=== PATIENT | male | born 1995 ===

== ENCOUNTER 2021-10-24 01:38 | Emergency (ER) | payer MEDICAID ==
[2021-10-24 02:09] LABS: BLOOD UREA NITROGEN,BUN 14 mg/dL (7.0-18.0); CARBON DIOXIDE,CO2 26.7 mmol/L (21.0-32.0); CHLORIDE,CL 100 mmol/L (98-107); GLUCOSE RANDOM 115 mg/dL (74-106); POTASSIUM,K 3.4 mmol/L (3.5-5.1); SODIUM,NA 141 mmol/L (136-148)
[2021-10-24] MEDS ORDERED: Potassium Chloride 10% 20 MEQ/15 ML Soln 30 ML UD Cup PO ONE (02:13)
[2021-10-24] MEDS ORDERED: Iopamidol 755 MG/ML 500 ML Multipack Bottle IVPUSH ONE (02:52)
== END 2021-10-24 03:54 | disposition home or self-care (01) ==
LOC: MW.ED 01:38
DX: R06.02 Shortness of breath (principal); R00.2 Palpitations; R00.0 Tachycardia, unspecified; E66.9 Obesity, unspecified; Z68.42 Body mass index [BMI] 45.0-49.9, adult
CPT/HCPCS: 36415; 71045; 71275; 80048; 83735; 84484; 85025; 85379; 93005; 99285; A9270; Q9967; 93010

== ENCOUNTER 2021-11-06 23:00 | Emergency (ER) | payer MEDICAID | END 2021-11-07 01:25 | disposition home or self-care (01) | LOC: MW.ED 23:00 | DX: R06.02 Shortness of breath (principal); R00.2 Palpitations; I10 Essential (primary) hypertension; E66.9 Obesity, unspecified; Z68.42 Body mass index [BMI] 45.0-49.9, adult | CPT/HCPCS: 71045; 71045-26; 93005; 93010; 99283; 99285-25 ==

== ENCOUNTER 2022-06-24 23:35 | Emergency (ER) | payer MEDICAID ==
[2022-06-25] MEDS ORDERED: Ketorolac 30 MG/ML SDV IM ONE (00:32)
[2022-06-25 00:37] LABS: CARBON DIOXIDE,CO2 25.4 mmol/L (21.0-32.0)
== END 2022-06-25 00:55 | disposition home or self-care (01) ==
LOC: MW.ED 23:35
DX: M54.6 Pain in thoracic spine (principal); I10 Essential (primary) hypertension; E66.9 Obesity, unspecified; Z68.41 Body mass index [BMI] 40.0-44.9, adult
CPT/HCPCS: 36415; 71045; 80053; 85025; 85379; 96372; 99283; J1885